=== PATIENT | female | born 1945 | race Caucasian/White ===

== ENCOUNTER 2021-02-11 09:46 | Emergency (ER) | payer MEDICARE, BC ==
[~2021-02-11] VITALS: Ht 167.6 cm; Wt 79.4 kg
[2021-02-11 10:05] VITALS: BP 151/93
--- NOTE | 2021-02-11 10:05 | NUR ---
AT BEDSIDE FOR EVAL.
--- NOTE | 2021-02-11 10:28 | NUR ---
TRACK REPAIRER AT BEDSIDE FOR XRAY.
--- NOTE | 2021-02-11 11:35 | NUR ---
VELCRO WRIST SPLINT APPLIED.
--- NOTE | 2021-02-11 11:40 | NUR ---
Patient discharged to home in stable condition. Written and verbal after care instructions given. Patient verbalizes understanding of instruction.
== END 2021-02-11 11:41 | disposition home or self-care (01) ==
LOC: ER 09:52
DX: S63.592A Other specified sprain of left wrist, initial encounter (principal); X58.XXXA Exposure to other specified factors, initial encounter; Y93.89 Activity, other specified; Y92.89 Other specified places as the place of occurrence of the external cause; Y99.8 Other external cause status
CPT/HCPCS: 73110